=== PATIENT | female | born 2000 | race Caucasian/White ===

== ENCOUNTER 2022-02-26 22:38 | Emergency (ER) | payer OTHER ==
[2022-02-26 22:54] VITALS: BP 106/73; PULSE 88; RESP 18; TEMP 97.9; BMI 22.4
[2022-02-27] MEDS ORDERED: ACETAMINOPHEN 1000 MG/100 ML BAG IVPB ONE (00:41)
[2022-02-27] MEDS ORDERED: SODIUM CHLORIDE 0.9% 500 ML INFUS.BAG IV ONE (00:41)
[2022-02-27 01:25] LABS: EOS % 1.3 % (0-4.5); HEMATOCRIT 42.2 % (32.4-45.2); HEMOGLOBIN 14.2 GM/dL (10.7-15.3); LYMPH % 33.9 % (8-40); MCH 30.1 pg (25.7-33.7); MCHC 33.7 g/dl (32.0-36.0); MEAN CELL VOLUME 89.5 fl (80-96); MEAN PLT VOLUME 8.5 fl (7.5-11.1); MONO % 8.9 % (3.8-10.2); NEUT % 54.9 % (42.8-82.8); PLATELET COUNT 225 10^3/uL (134-434); RBC 4.72 M/mm3 (3.60-5.2); RDW 12.8 % (11.6-15.6); WHITE BLOOD COUNT 8.2 K/mm3 (4.0-10.0)
[2022-02-27] MEDS ORDERED: ACETAMINOPHEN INJECTION 100 ML IVPB ONE (01:26)
[2022-02-27 01:27] LABS: URINE APPEARANCE CLEAR; URINE BILIRUBIN NEGATIVE (NEGATIVE); URINE COLOR YELLOW; URINE GLUCOSE (UA) NEGATIVE (NEGATIVE); URINE KETONE NEGATIVE (NEGATIVE); URINE LEUK ESTERASE NEGATIVE (NEGATIVE); URINE NITRITE NEGATIVE (NEGATIVE); URINE PROTEIN NEGATIVE (NEGATIVE); URINE UROBILINOGEN 0.2 mg/dL (0.2-1.0)
[2022-02-27 01:30] LABS: HCG,QUALITATIVE URINE Negative
[2022-02-27 01:45] LABS: CALCIUM 9.8 mg/dL (8.5-10.1)
[2022-02-27 01:46] LABS: BLOOD UREA NITROGEN 14.4 mg/dL (7-18)
[2022-02-27 01:49] LABS: CREATININE 0.8 mg/dL (0.55-1.3)
[2022-02-27 01:50] LABS: TOT PROT 8.2 g/dl (6.4-8.2)
[2022-02-27 02:35] LABS: BILIRUBIN,TOTAL 0.4 mg/dL (0.2-1)
== END 2022-02-27 04:13 | disposition home or self-care (01) ==
LOC: JER 22:38
PROC: 3E0333Z Introduction of Anti-inflammatory into Peripheral Vein, Percutaneous Approach (ICD-10-PCS; principal; 2022-02-26)
DX: N23 Unspecified renal colic (principal); N20.0 Calculus of kidney
CPT/HCPCS: 36415; 74176-TC; 76705-TC; 80053; 81003; 83690; 84703; 85025; 87086; 99285-25